=== PATIENT | male | born 1995 | race Two or more races ===

== ENCOUNTER 2019-05-21 16:57 | Emergency (ER) | payer SELFPAY ==
[2019-05-21] MEDS ORDERED: ACETAMINOPHEN 325 MG TABLET (FP) PO ONE (17:18)
[2019-05-21 17:19] VITALS: BP 124/70; PULSE 86; TEMP 97.2; BMI 37.8
[2019-05-21] MEDS ORDERED: DIPHTH,PERTUSS(ACELL),TET 0.5 ML DISP.SYRIN IM ONE ×2 (17:20→17:26)
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
[2019-05-21] MEDS ORDERED: ACETAMINOPHEN 325 MG TABLET (FP) ONE (17:26)
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
[2019-05-21] MEDS ORDERED: AMPICILLIN NA/SULBACTAM NA 3 GM in SODIUM CHLORIDE 100 ML IVPB ONE (19:48)
[2019-05-21] MEDS ORDERED: morphine CARPU-JECT 4 MG/1 ML DISP.SYRIN IVPUSH ONE (19:53)
== END 2019-05-21 20:47 | disposition left against medical advice (07) ==
LOC: JERFT 16:57
PROC: 3E0234Z Introduction of Serum, Toxoid and Vaccine into Muscle, Percutaneous Approach (ICD-10-PCS; principal; 2019-05-21)
DX: S02.32XA Fracture of orbital floor, left side, initial encounter for closed fracture (principal); Y04.2XXA Assault by strike against or bumped into by another person, initial encounter; Y93.89 Activity, other specified; Y92.89 Other specified places as the place of occurrence of the external cause
CPT/HCPCS: 70450-TC; 70486-TC; 90715; 99285-25

== ENCOUNTER 2021-07-19 13:23 | Emergency (ER) | payer OTHER ==
[2021-07-19 13:25] VITALS: BP 135/73; PULSE 88; TEMP 98.5; BMI 20.5
[2021-07-19] MEDS ORDERED: IBUPROFEN 600 MG TABLET (FP) PO ONE ×2 (15:00→15:06)
== END 2021-07-19 15:28 | disposition home or self-care (01) ==
LOC: JERFT 13:23
DX: H60.392 Other infective otitis externa, left ear (principal)
CPT/HCPCS: 99283-25

== ENCOUNTER 2022-01-26 12:13 | Emergency (ER) | payer OTHER ==
[2022-01-26 12:18] VITALS: BP 120/56; PULSE 84; RESP 18; TEMP 98.1; BMI 21.2
[2022-01-26] MEDS ORDERED: DIPHTH,PERTUSS(ACELL),TET 0.5 ML DISP.SYRIN IM ONE ×2 (14:27→14:30)
== END 2022-01-26 14:38 | disposition home or self-care (01) ==
LOC: JERFT 12:13
PROC: 0HQ1XZZ Repair Face Skin, External Approach (ICD-10-PCS; principal; 2022-01-26)
PROC: 3E0234Z Introduction of Serum, Toxoid and Vaccine into Muscle, Percutaneous Approach (ICD-10-PCS; 2022-01-26)
DX: S01.111A Laceration without foreign body of right eyelid and periocular area, initial encounter (principal); W25.XXXA Contact with sharp glass, initial encounter
CPT/HCPCS: 12011-25; 70200-TC-FY; 90471; 90715; 99284-25

== ENCOUNTER 2022-02-03 14:42 | Emergency (ER) | payer OTHER ==
[2022-02-03 14:47] VITALS: BP 109/71; PULSE 92; RESP 18; TEMP 98; BMI 21.2
== END 2022-02-03 18:45 | disposition home or self-care (01) ==
LOC: JERFT 14:42
DX: H11.31 Conjunctival hemorrhage, right eye (principal)
CPT/HCPCS: 70480-TC; 99284-25

== ENCOUNTER 2022-12-02 14:33 | Emergency (ER) | payer OTHER ==
[2022-12-02 14:42] VITALS: BP 114/56; PULSE 91; RESP 18; TEMP 98.2; BMI 21.2
[2022-12-02] MEDS ORDERED: IBUPROFEN 600 MG TABLET (FP) PO ONE (17:17)
== END 2022-12-02 18:06 | disposition home or self-care (01) ==
LOC: JERFT 14:33 → JER 14:33 → JERFT 18:06
DX: M79.671 Pain in right foot (principal); W22.8XXA Striking against or struck by other objects, initial encounter
CPT/HCPCS: 73630-TC-RT-FY

== ENCOUNTER 2024-01-15 21:30 | Emergency (ER) | payer SELFPAY ==
[2024-01-15 21:35] VITALS: TEMP 97.7; BMI 21.2
[2024-01-15] MEDS ORDERED: ALBUTEROL SO4 2.5/IPRATROPIUM 0.5 INH SOL 3 ML VIAL.NEB. NEB ONE (22:06)
[2024-01-15] MEDS: ALBUTEROL SO4 2.5/IPRATROPIUM 0.5 INH SOL 3 ML VIAL.NEB. NEB ONE (22:12)
[2024-01-15 22:56] VITALS: BP 109/60; PULSE 83; RESP 18
== END 2024-01-15 23:00 | disposition home or self-care (01) ==
LOC: JER 21:30
PROC: 3E0F7GC Introduction of Other Therapeutic Substance into Respiratory Tract, Via Natural or Artificial Opening (ICD-10-PCS; principal; 2024-01-15)
DX: E86.0 Dehydration (principal); R07.89 Other chest pain; R42 Dizziness and giddiness; R11.0 Nausea; Z20.822 Contact with and (suspected) exposure to COVID-19
CPT/HCPCS: 0241U-QW; 99283-25